=== PATIENT | female | born 1980 | race African-American/Black ===

== ENCOUNTER 2023-05-31 05:30 | Emergency (ER) | payer SELFPAY ==
[~2023-05-31] VITALS: Ht 167.6 cm; Wt 68.0 kg
[2023-05-31 06:31] LABS: BASO% 0.2 % (0-3); HEMATOCRIT 40.3 % (37.0-47.0); LYMPH% 17.5 % (15-41); MEAN CELL VOLUME 87.6 fL CALC (80.0-100.0); MEAN CORPUSCULAR HGB 28.3 pG CALC (26.0-32.0); MEAN CORPUSCULAR HGB CONC 32.3 g/dL CAL (32.0-36.0); MONO% 6.4 % (2-13); NEUT# 6.12 thou/uL (2.00-7.15); NEUT% 75.9 % (42-76); RED BLOOD COUNT 4.6 mill/uL (4.20-5.60); RED CELL DISTRI WIDTH 13.2 % (11.5-15.5)
[2023-05-31 07:16] LABS: ALKALINE PHOSPHATASE 59 u/l (38-126); AMYLASE 79 u/l (30-110); ANION GAP 12 (6-22 (CALC)); BILIRUBIN, TOTAL 0.7 mg/dL (0.02-1.3); BUN 13 mg/dL (7-17); BUN/CREATININE RATIO 16 (12-20 (CALC)); CARBON DIOXIDE 19 mmol/l (22-30); CHLORIDE 110 mmol/l (95-108); CREATININE 0.8 mg/dL (0.5-1.0); GFR FOR AFR.AMER. > 60 ML/MIN (>=60 (CALC)); GFR OTHER RACES > 60 ML/MIN (>=60 (CALC)); LIPASE 134 u/l (23-300); POTASSIUM 4.5 mmol/l (3.5-5.1); SGOT/AST 28 u/l (14-36); SODIUM 137 mmol/l (137-146)
[2023-05-31 07:23] LABS: URINE BILIRUBIN - DIPSTICK NEGATIVE (NEGATIVE); URINE COLOR YELLOW; URINE GLUCOSE - DIPSTICK NEGATIVE (NEGATIVE); URINE KETONE TRACE mg/dL (NEGATIVE); URINE PH 8.5 (4.5-8.0); URINE PROTEIN - DIPSTICK NEGATIVE (NEG-TRACE); URINE SPECIFIC GRAVITY 1.015; URINE UROBILINOGEN - DIPSTICK 0.2 E.U./dL (0.2)
[2023-05-31 07:24] LABS: URINE BLOOD DIPSTICK NEGATIVE (NEGATIVE); URINE LEUK ESTERASE NEGATIVE (NEGATIVE); URINE NITRITE - DIPSTICK NEGATIVE (Negative)
[2023-05-31] MEDS ORDERED: ZOFRAN4 MG/TAB PO (10:05)
[2023-05-31] MEDS ORDERED: NAPROXEN500 MG PO (10:05)
[2023-05-31] MEDS ORDERED: TRAMADOL HYDROC50 M1 PO (10:05)
[2023-05-31] MEDS ORDERED: TAMSULOSIN0.4 MG PO (10:06)
[2023-05-31 10:15] VITALS: BP 149/100
== END 2023-05-31 10:46 | disposition home or self-care (01) | DRG 694 ==
LOC: ED 05:30 → EDBD 06:03 → ED 10:46
PROVIDERS: Emergency Medicine
DX: N20.1 Calculus of ureter (principal); I10 Essential (primary) hypertension; Z20.822 Contact with and (suspected) exposure to COVID-19
CPT/HCPCS: Q9967

== ENCOUNTER 2024-05-13 10:00 | Emergency (ER) | payer OTHER ==
[~2024-05-13] VITALS: Ht 167.6 cm; Wt 68.0 kg
[2024-05-13] VITALS (14 sets, daily range): BP systolic 114–142; BP diastolic 79–103
[~2024-05-13 10:00] MED LIST: NAPROXEN500 MG PO; TAMSULOSIN0.4 MG PO; TRAMADOL HYDROC50 M1 PO; ZOFRAN4 MG/TAB PO
[2024-05-13] MEDS ORDERED: KETOROLAC TROMETHAMINE 30 MG/ML SDV IV ONE (10:25)
[2024-05-13] MEDS ORDERED: AMLODIPINE BESY10 MG PO (10:48)
[2024-05-13] MEDS ORDERED: CHLORTHALID50 MG PO (10:49)
[2024-05-13 11:19] LABS: BASO% 0.4 % (0-3); EOS% 1.3 % (0-8); HEMOGLOBIN 14.9 g/dl (12.0-16.0); IMMATURE GRANULOCYTES 0.2 % (0.0-5.0); LYMPH% 55.4 % (15-41); MEAN CELL VOLUME 90.1 fL CALC (80.0-100.0); MEAN CORPUSCULAR HGB CONC 32.2 g/dL CAL (32.0-36.0); NEUT# 1.93 thou/uL (2.00-7.15); NEUT% 35.7 % (42-76); RED BLOOD COUNT 5.14 mill/uL (4.20-5.60); RED CELL DISTRI WIDTH 12.3 % (11.5-15.5)
[2024-05-13 11:20] LABS: HEMATOCRIT 46.3 % (37.0-47.0)
[2024-05-13 11:30] LABS: ALBUMIN 4.8 g/dL (3.2-5.0); BILIRUBIN, TOTAL 0.9 mg/dL (0.02-1.3); CREATININE 0.7 mg/dL (0.5-1.0); POTASSIUM 3.8 mmol/l (3.5-5.1); TOTAL PROTEIN 8.3 g/dL (6.3-8.2)
[2024-05-13 12:16] LABS: URINE BILIRUBIN - DIPSTICK Negative (NEGATIVE); URINE BLOOD DIPSTICK Large (NEGATIVE); URINE GLUCOSE - DIPSTICK Negative (NEGATIVE); URINE KETONE Trace mg/dL (NEGATIVE); URINE LEUK ESTERASE Negative (NEGATIVE); URINE NITRITE - DIPSTICK Negative (Negative); URINE PH 7.5 (4.5-8.0); URINE PROTEIN - DIPSTICK 30 mg/dL (NEG-TRACE); URINE SPECIFIC GRAVITY 1.015; URINE UROBILINOGEN - DIPSTICK 0.2 E.U./dL (0.2)
[2024-05-13 12:31] LABS: URINE COLOR Yellow; URINE EPITHELIAL CELLS FEW EPI/hpf (0-FEW); URINE RBC 25-50 RBC/hpf (0-5)
== END 2024-05-13 14:34 | disposition home or self-care (01) | DRG 761 ==
LOC: ED 10:00
PROVIDERS: Emergency Medicine
DX: N93.9 Abnormal uterine and vaginal bleeding, unspecified (principal); I10 Essential (primary) hypertension
CPT/HCPCS: Q9967

== ENCOUNTER 2024-11-19 03:00 | Emergency (ER) | payer OTHER ==
[~2024-11-19] VITALS: Ht 167.6 cm; Wt 85.0 kg
[~2024-11-19 03:00] MED LIST changes: +AMLODIPINE BESY10 MG PO; +CHLORTHALID50 MG PO
[2024-11-19] MEDS ORDERED: COZAAR25 MG PO (03:13)
[2024-11-19 03:42] LABS: URINE BILIRUBIN - DIPSTICK Negative (NEGATIVE); URINE BLOOD DIPSTICK Negative (NEGATIVE); URINE GLUCOSE - DIPSTICK Negative (NEGATIVE); URINE KETONE Negative (NEGATIVE); URINE LEUK ESTERASE Negative (NEGATIVE); URINE NITRITE - DIPSTICK Negative (Negative); URINE PH 5.5 (4.5-8.0); URINE PROTEIN - DIPSTICK Negative (NEG-TRACE); URINE SPECIFIC GRAVITY >=1.030; URINE UROBILINOGEN - DIPSTICK 0.2 E.U./dL (0.2)
[2024-11-19 03:43] LABS: URINE COLOR Yellow
[2024-11-19 04:00] LABS: ALBUMIN 3.5 g/dL (3.2-5.0); BILIRUBIN, TOTAL 0.5 mg/dL (0.02-1.3); CREATININE 0.6 mg/dL (0.5-1.0); POTASSIUM 3.7 mmol/l (3.5-5.1); TOTAL PROTEIN 6.5 g/dL (6.3-8.2)
[2024-11-19 04:03] LABS: BASO% 0.2 % (0-3); EOS% 0.5 % (0-8); IMMATURE GRANULOCYTES 0.5 % (0.0-5.0); LYMPH% 35.5 % (15-41); MEAN CELL VOLUME 87.5 fL CALC (80.0-100.0); MEAN CORPUSCULAR HGB 29.2 pG CALC (26.0-32.0); MEAN CORPUSCULAR HGB CONC 33.3 g/dL CAL (32.0-36.0); MONO% 7.4 % (2-13); NEUT# 3.32 thou/uL (2.00-7.15); NEUT% 55.9 % (42-76); RED BLOOD COUNT 4.39 mill/uL (4.20-5.60)
[2024-11-19 04:08] LABS: HEMATOCRIT 38.4 % (37.0-47.0); HEMOGLOBIN 12.8 g/dl (12.0-16.0)
[2024-11-19 05:32] VITALS: BP 146/97
== END 2024-11-19 05:46 | disposition home or self-care (01) | DRG 998 ==
LOC: ED 03:00
PROVIDERS: Family Medicine
DX: O09.521 Supervision of elderly multigravida, first trimester (principal); O10.911 Unspecified pre-existing hypertension complicating pregnancy, first trimester; Z3A.09 9 weeks gestation of pregnancy

== ENCOUNTER 2024-12-13 03:45 | Emergency (ER) | payer OTHER ==
[~2024-12-13] VITALS: Ht 167.6 cm; Wt 75.0 kg
[~2024-12-13 03:45] MED LIST changes: +COZAAR25 MG PO
[2024-12-13 04:11] VITALS: BP 138/85
[2024-12-13 04:39] LABS: BASO% 0.2 % (0-3); EOS% 0.3 % (0-8); HEMOGLOBIN 12.9 g/dl (12.0-16.0); IMMATURE GRANULOCYTES 0.5 % (0.0-5.0); LYMPH% 33.1 % (15-41); MEAN CELL VOLUME 85.6 fL CALC (80.0-100.0); MEAN CORPUSCULAR HGB 29.1 pG CALC (26.0-32.0); MEAN CORPUSCULAR HGB CONC 33.9 g/dL CAL (32.0-36.0); MONO% 8.1 % (2-13); NEUT# 3.48 thou/uL (2.00-7.15); NEUT% 57.8 % (42-76); RED BLOOD COUNT 4.44 mill/uL (4.20-5.60)
[2024-12-13 04:49] LABS: BILIRUBIN, TOTAL 0.7 mg/dL (0.02-1.3); CREATININE 0.6 mg/dL (0.5-1.0); POTASSIUM 3.3 mmol/l (3.5-5.1)
[2024-12-13 04:50] LABS: TOTAL PROTEIN 8.1 g/dL (6.3-8.2)
[2024-12-13 04:51] LABS: ALBUMIN 4.5 g/dL (3.2-5.0)
[2024-12-13 04:53] LABS: URINE BILIRUBIN - DIPSTICK Negative (NEGATIVE); URINE BLOOD DIPSTICK Moderate (NEGATIVE); URINE GLUCOSE - DIPSTICK Negative (NEGATIVE); URINE KETONE Negative (NEGATIVE); URINE NITRITE - DIPSTICK Negative (Negative); URINE PH 5.5 (4.5-8.0); URINE PROTEIN - DIPSTICK Negative (NEG-TRACE); URINE UROBILINOGEN - DIPSTICK 0.2 E.U./dL (0.2)
[2024-12-13 05:08] LABS: URINE COLOR Yellow; URINE LEUK ESTERASE Negative (NEGATIVE)
[2024-12-13 05:09] LABS: URINE BACTERIA FEW hpf; URINE EPITHELIAL CELLS FEW EPI/hpf (0-FEW); URINE WBC 0-2 WBC/hpf (0-5)
[2024-12-13 05:26] VITALS: BP 122/86
[2024-12-13] MEDS ORDERED: ACETAMINOPHEN 500 MG TAB PO ONE (05:30)
[2024-12-13 06:00] VITALS: BP 121/88
[2024-12-13 07:41] VITALS: BP 121/88
== END 2024-12-13 08:00 | disposition home or self-care (01) | DRG 832 ==
LOC: ED 03:45
PROVIDERS: Family Medicine
DX: O20.8 Other hemorrhage in early pregnancy (principal); O10.911 Unspecified pre-existing hypertension complicating pregnancy, first trimester; O09.521 Supervision of elderly multigravida, first trimester; Z3A.12 12 weeks gestation of pregnancy